=== PATIENT | male | born 1960 | race Caucasian/White ===

== ENCOUNTER 2018-05-29 14:55 | Emergency (ER) | payer BC ==
[2018-05-29 15:21] VITALS: BP 136/94
[2018-05-29] MEDS ORDERED: IBUPROFEN 800 MG TABLET PO STA (16:00)
[2018-05-29] MEDS ORDERED: LIDOCAINE 2%-EPI 1:100000 20 ML MDV SUBQ STA (16:00)
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
[2018-05-29] MEDS ORDERED: BACITRACIN OINT TOP ONE (16:20)
== END 2018-05-29 16:48 | disposition home or self-care (01) ==
LOC: ED 14:55
DX: S81.812A Laceration without foreign body, left lower leg, initial encounter (principal); V19.3XXA Pedal cyclist (driver) (passenger) injured in unspecified nontraffic accident, initial encounter; Y93.55 Activity, bike riding
CPT/HCPCS: 99283; A9270

== ENCOUNTER 2022-09-15 08:00 | Outpatient (CLI) | payer BC ==
--- NOTE | 2022-09-15 15:42 | XRAY Report ---
PROCEDURE: Chest 2 View X-Ray INDICATIONS: COVID19 INFECTION TECHNIQUE: 2 views of the chest were acquired. COMPARISON: None. FINDINGS: Surgical changes and devices: Lumbar spine pedicle screws. Lungs and pleura: No pleural effusions or pneumothorax. Lungs appear clear. Mediastinum: Mediastinal contours are normal. Heart size is within normal limits. Bones and chest wall: No suspicious bony abnormalities. Soft tissues appear unremarkable. IMPRESSION: No acute cardiopulmonary abnormality. Reviewed by: Bimal Frey MD on 09/15/2022 3:41 PM PST Approved by: Bimal Frey MD on 09/15/2022 3:41 PM [facility] Station ID: [id number]
== END 2022-09-15 23:59 | disposition home or self-care (01) ==
LOC: DI.S 08:00
PROVIDERS: ATTEND Emergency Medicine
DX: U07.1 COVID-19 (principal)